=== PATIENT | female | born 1985 | race Two or more races ===

== ENCOUNTER 2019-09-27 18:29 | Observation (INO) | payer SELFPAY ==
[~2019-09-27] VITALS: Ht 167.6 cm; Wt 106.2 kg
[2019-09-27] MEDS ORDERED: ONDANSETRON PF 4 MG/2 ML VIAL. ONE (18:50)
[2019-09-27] MEDS ORDERED: IV NORMAL SALINE 1000ML BAG 1,000 ML IV ONE (19:30)
[2019-09-27] MEDS ORDERED: ONDANSETRON PF 4 MG/2 ML VIAL. IV ONE (19:30)
[2019-09-27 19:49] LABS: BASO # 0.1 x10^3/uL (0.0-0.2); BASO % 1 % (0-3); EOS # 0.1 x10^3/uL (0.0-0.7); EOS % 1 % (0-3); HEMATOCRIT 38.2 % (36.0-47.0); HEMOGLOBIN 12.8 g/dL (12.0-15.5); LYMPH % 25 % (24-48); MEAN CORPUSCULAR HEMOGLOBIN 28 pg (25-35); MEAN CORPUSCULAR HGB CONC 33 g/dL (31-37); MEAN CORPUSCULAR VOLUME 84 fL (79-100); MONO % 8 % (0-9); NEUT # 7.9 x10^3/uL (1.8-7.7); NEUT % 66 % (31-73); PLATELET COUNT 388 x10^3/uL (140-400); RED BLOOD COUNT 4.55 x10^6/uL (3.50-5.40); RED CELL DISTRIBUTION WIDTH 14.2 % (11.5-14.5)
[2019-09-27 19:51] LABS: CALCIUM 8.8 mg/dL (8.5-10.1); CREATININE 0.8 mg/dL (0.6-1.0); GFR 82.1; POTASSIUM 3.4 mmol/L (3.5-5.1)
[2019-09-27 19:56] LABS: ALBUMIN 3.7 g/dL (3.4-5.0); ALBUMIN/GLOBULIN RATIO 0.8 (1.0-1.7); TOTAL BILIRUBIN 0.3 mg/dL (0.2-1.0); TOTAL PROTEIN 8.1 g/dL (6.4-8.2)
[2019-09-27 20:26] LABS: BILIRUBIN,URINE NEGATIVE (NEG); CLARITY,URINE CLOUDY; COLOR,URINE YELLOW; NITRITE,URINE NEGATIVE (NEG); PH,URINE 8.5 (<5.0-8.0); PROTEIN,URINE NEGATIVE (NEG-TRACE)
[2019-09-27 20:35] LABS: SQUAMOUS EPITHELIAL CELL,UR MANY /LPF
[2019-09-27 20:36] LABS: BACTERIA,URINE MODERATE /HPF (0-FEW); RBC,URINE 0 /HPF (0-2); WBC,URINE 20-40 /HPF (0-4)
[2019-09-27] MEDS ORDERED: ONDANSETRON PF 4 MG/2 ML VIAL. IVP ONE (21:00)
[2019-09-27] MEDS ORDERED: MECLIZINE HCL 12.5 MG TABLET. PO ONE (21:00)
[2019-09-27] MEDS ORDERED: SCOPOLAMINE 1.5MG PATCH. TD ONE (21:00)
[2019-09-27] MEDS ORDERED: LORazepam 0.5 MG TABLET PO ONE (22:30)
[2019-09-27] MEDS ORDERED: PROCHLORPERAZINE 10 MG/2 ML VIAL. ONE (22:53)
--- NOTE | 2019-09-27 22:59 | RAD ---
Exam: CT head INDICATION: Intractable dizziness TECHNIQUE: Sequential axial images through the head were obtained without the administration of IV contrast. Comparisons: None FINDINGS: No focal parenchymal lesion or hemorrhage is identified. There is no midline shift or sulcal effacement. No acute vascular territory infarction is identified. West-white distinction is preserved. The ventricular system is within normal limits without compression hydrocephalus. The basal cisterns are well maintained. The visualized portions of the paranasal sinuses and mastoid air cells are well-pneumatized. No acute fractures. IMPRESSION: No acute intracranial abnormality. Exposure: One or more of the following in the visualized dose reduction techniques were utilized for this examination: 1. Automated exposure control 2. Adjustment of the MA and/or KV according to patient size Use of iterative of reconstructive technique Electronically signed by: David Ross MD (09/27/2019 10:55 PM) [id number]
[2019-09-27] MEDS ORDERED: PROCHLORPERAZINE 10 MG/2 ML VIAL. IV ONE (23:00)
--- NOTE | 2019-09-27 23:21 | PHYS DOC ---
Past Medical History Past Medical History: No Pertinent History Past Surgical History: Cholecystectomy Smoking Status: Never Smoker Alcohol Use: Occasionally General Adult EDM: Chief Complaint: DIZZY/LIGHT HEADED HPI: HPI: Patient is a 34 year old female, accompanied by her significant other, who presents to the emergency department with complaints of a sudden onset of lightheadedness, dizziness, and a sensation that the room is spinning. Patient reports that her vision seems like it is wiggling and is blurry. She denies any loss of vision. Patient denies any headache, numbness, tingling, weakness, ear pain, sore throat, body aches, cough, shortness of breath, chest pain, or palpitations. Patient denies any abdominal pain, dysuria, increased urinary frequency, hematuria, or back pain.. She reports 4 episodes of nausea and vomiting prior to arrival. She states that the nausea and vomiting increases if she moves her head. She reports her last menstrual cycle was on September 062019 she denies any concerns of . Patient denies any medical history. She reports her only surgical history is a cholecystectomy. Patient states she has noticed fatigue over the last week but denies any fever or known COVID-19 exposure. Patient also reports a itchy rash to her bilateral forearms that began 3 days ago, she states her child was diagnosed with poison pablo last week. Review of Systems: Review of Systems: Complete review of system is negative unless otherwise documented in the HPI. Heart Score: Risk Factors: Risk Factors: DM, Current or recent (<one month) smoker, HTN, HLP, family history of CAD, obesity. Risk Scores: Score 0 - 3: 2.5% MACE over next 6 weeks - Discharge Home Score 4 - 6: 20.3% MACE over next 6 weeks - Admit for Clinical Observation Score 7 - 10: 72.7% MACE over next 6 weeks - Early Invasive Strategies Current Medications: Current Medications Medications (Trade) Dose Ordered Sig/Karsten Start Time Stop Time Status Last Admin Dose Admin Lorazepam (Ativan) 1 mg 1X ONCE 09/27/19 22:30 09/27/19 22:31 DC 09/27/19 22:30 1 MG Meclizine HCl (Antivert) 25 mg 1X ONCE 09/27/19 21:00 09/27/19 21:01 DC 09/27/19 21:00 25 MG Ondansetron HCl (Zofran) 4 mg 1X ONCE 09/27/19 21:00 09/27/19 21:01 DC 09/27/19 21:00 4 MG Prochlorperazine Edisylate (Compazine) 10 mg 1X ONCE 09/27/19 23:00 09/27/19 23:01 DC 09/27/19 23:00 10 MG Scopolamine (Transderm-Scop) 1 patch 1X ONCE 09/27/19 21:00 09/27/19 21:01 DC 09/27/19 21:00 1 PATCH Sodium Chloride 1,000 ml @ 1,000 mls/hr 1X ONCE 09/27/19 19:30 09/27/19 20:29 DC 09/27/19 19:30 1,000 MLS/HR Allergies: Allergies: Allergies Coded Allergies Type Severity Reaction Last Updated Verified No Known Drug Allergies 09/27/19 No Physical Exam: PE: Constitutional: Well developed, well nourished, no acute distress, non-toxic appearance, obese, appears anxious. [] HENT: Normocephalic, atraumatic, bilateral external ears normal, nose normal. [] Eyes: PERRLA, EOMI, conjunctiva normal, no discharge; left lateral nystagmus. [] Neck: Normal range of motion, no stridor. [] Cardiovascular:Heart rate regular rhythm Lungs & Thorax: Bilateral breath sounds clear to auscultation, Respirations even and unlabored, no retractions, no respiratory distress [] Abdomen: Bowel sounds normal, soft, no tenderness Skin: Scattered red raised rash to bilateral forearms consistent with contact dermatitis, no warmth or drainage skin is otherwise pink warm and dry Back: No CVA tenderness. [] Extremities: No tenderness, no cyanosis, no clubbing, ROM intact, no edema. [] Neurologic: Alert and oriented X 3, normal motor function, normal sensory function, no focal deficits noted. [] Psychologic: Affect normal, judgement normal, mood normal. [] Current Patient Data: Labs: Laboratory Tests Test 09/27/19 18:55 09/27/19 20:10 09/27/19 20:22 White Blood Count 12.0 x10^3/uL (4.0-11.0) H Red Blood Count 4.55 x10^6/uL (3.50-5.40) Hemoglobin 12.8 g/dL (12.0-15.5) Hematocrit 38.2 % (36.0-47.0) Mean Corpuscular Volume 84 fL (79-100) Mean Corpuscular Hemoglobin 28 pg (25-35) Mean Corpuscular Hemoglobin Concent 33 g/dL (31-37) Red Cell Distribution Width 14.2 % (11.5-14.5) Platelet Count 388 x10^3/uL (140-400) Neutrophils (%) (Auto) 66 % (31-73) Lymphocytes (%) (Auto) 25 % (24-48) Monocytes (%) (Auto) 8 % (0-9) Eosinophils (%) (Auto) 1 % (0-3) Basophils (%) (Auto) 1 % (0-3) Neutrophils # (Auto) 7.9 x10^3/uL (1.8-7.7) H Lymphocytes # (Auto) 3.0 x10^3/uL (1.0-4.8) Monocytes # (Auto) 1.0 x10^3/uL (0.0-1.1) Eosinophils # (Auto) 0.1 x10^3/uL (0.0-0.7) Basophils # (Auto) 0.1 x10^3/uL (0.0-0.2) Sodium Level 140 mmol/L (136-145) Potassium Level 3.4 mmol/L (3.5-5.1) L Chloride Level 103 mmol/L (98-107) Carbon Dioxide Level 26 mmol/L (21-32) Anion Gap 11 (6-14) Blood Urea Nitrogen 11 mg/dL (7-20) Creatinine 0.8 mg/dL (0.6-1.0) Estimated GFR (Cockcroft-Gault) 82.1 BUN/Creatinine Ratio 14 (6-20) Glucose Level 102 mg/dL (70-99) H Calcium Level 8.8 mg/dL (8.5-10.1) Total Bilirubin 0.3 mg/dL (0.2-1.0) Aspartate Amino Transferase (AST) 22 U/L (15-37) Alanine Aminotransferase (ALT) 26 U/L (14-59) Alkaline Phosphatase 117 U/L (46-116) H Total Protein 8.1 g/dL (6.4-8.2) Albumin 3.7 g/dL (3.4-5.0) Albumin/Globulin Ratio 0.8 (1.0-1.7) L Lipase 115 U/L (73-393) Urine Collection Type Unknown Urine Color Yellow Urine Clarity Cloudy Urine pH 8.5 (<5.0-8.0) Urine Specific [place] 1.020 (1.000-1.030) Urine Protein Negative mg/dL (NEG-TRACE) Urine Glucose (UA) Negative mg/dL (NEG) Urine Ketones (Stick) Negative mg/dL (NEG) Urine Blood Negative (NEG) Urine Nitrite Negative (NEG) Urine Bilirubin Negative (NEG) Urine Urobilinogen Dipstick 1.0 mg/dL (0.2 mg/dL) Urine Leukocyte Esterase Small (NEG) Urine RBC 0 /HPF (0-2) Urine WBC 20-40 /HPF (0-4) Urine Squamous Epithelial Cells Many /LPF Urine Bacteria Moderate /HPF (0-FEW) Urine Mucus Marked /LPF POC Urine HCG, Qualitative Hcg negative (Negative) Laboratory Tests 09/27/19 18:55 Laboratory Tests 09/27/19 18:55 Vital Signs: Vital Signs Date Time Temp Pulse Resp B/P (MAP) Pulse Ox O2 Delivery O2 Flow Rate FiO2 09/27/19 21:14 66 18 99 09/27/19 18:30 98.3 155/98 (117) Room Air 98.3 EKG: EKG: [] Radiology/Procedures: Radiology/Procedures: PROCEDURE: CT HEAD WO CONTRAST Exam: CT head INDICATION: Intractable dizziness TECHNIQUE: Sequential axial images through the head were obtained without the administration of IV contrast. Comparisons: None FINDINGS: No focal parenchymal lesion or hemorrhage is identified. There is no midline shift or sulcal effacement. No acute vascular territory infarction is identified. West-white distinction is preserved. The ventricular system is within normal limits without compression hydrocephalus. The basal cisterns are well maintained. The visualized portions of the paranasal sinuses and mastoid air cells are well-pneumatized. No acute fractures. IMPRESSION: No acute intracranial abnormality.[] Course & Med Decision Making: Course & Med Decision Making Pertinent Labs and Imaging studies reviewed. (See chart for details) Patient is a 34-year-old female who presents to the emergency department with complaints of vertigo with intractable nausea and vomiting when she moves. Work-up included a CBC, CMP, lipase, UA, and CT head. CBC revealed a white blood cell count of 12.0 was otherwise unremarkable; CMP revealed a potassium of three-point 4, glucose 102, alk phos of 117 normal lipase and was otherwise unremarkable; patient is urinary we will do 20-40 white blood cell count with moderate bacteria and many squamous cells hCG was negative. Patient was given 4 mg of Zofran with no resolution of her nausea, she was then given a liter of normal saline for more milligrams of Zofran, 25 mg of p.o. meclizine, and a scopolamine patch was placed behind her ear. Patient reported decreased dizziness as long as she did not move after these medications. However, when the patient got up to go to the bathroom she became severely nauseated again and began vomiting. The patient reported return of dizziness with position change. She was given 10 mg of IV the Compazine and a milligram of Ativan. Again the patient reports no dizziness, nausea, or vomiting unless she moves her head. CT of her head was ordered and revealed no acute findings. The patient was given a gram of Rocephin IV for treatment of her urinary tract infection. Will admit the patient to the hospitalist for vertigo, intractable nausea and vomiting, and a UTI. Dr. Honeycutt will inform the oncoming hospitalist of the admission. [] Krysta Disclaimer: Krysta Disclaimer: This electronic medical record was generated, in whole or in part, using a voice recognition dictation system. Departure Departure Impression: Primary Impression: Vertigo Additional Impression: Intractable nausea and vomiting Disposition: ADMITTED INPATIENT Admitting Physician: CAROL Pantoja) Condition: STABLE Referrals: NO PCP (PCP) Justicifation of Admission Dx: Justifications for Admission: Justification of Admission Dx: Yes Comments: Vertigo, intractable nausea vomiting, UTI patient admitted for observation. ALEXANDRA GARCIA [employer] Sep 27, 2019 23:21
[2019-09-27] MEDS ORDERED: cefTRIAXone IV Push 1 GM VIAL. IVP ONE (23:55)
[2019-09-28] MEDS: IV NORMAL SALINE 1000ML BAG 1,000 ML IV SCH ×2 (00:10→10:42)
[2019-09-28 00:45] VITALS: BP 128/74
[2019-09-28 03:00] VITALS: BP 126/70
--- NOTE | 2019-09-28 04:01 | NUR ---
0045 patient admitted to room 402 , patient assessment done, fall precaution in placed., POC discussed with patient .
[2019-09-28 07:00] VITALS: BP 111/64
--- NOTE | 2019-09-28 08:47 | PDOC1 ---
History and Physical Date of Admission Date of Admission DATE: 09/28/19 TIME: 08:32 Identification/Chief Complaint Chief Complaint Intractable nausea and vomiting Source Source: Patient History of Present Illness History of Present Illness Ms Chawla is a 34 yo F w/ PMHx obesity who p/w intractable vomiting with dizziness. She notes on 09/27/2019 after eating shrimp low main with her and 2 children 11 and 6 she started feeling dizzy 5 minutes after finishing dinner and while still sitting at the table and experienced intense vomiting. She reports 4 episodes of nausea and vomiting prior to arrival. She states that the nausea and vomiting increases if she moves her head. Noting dizziness, and a sensation that the room is spinning, vertigo when moving her head to the right. Initially described "wiggling and blurry" vision and noted with right cycloplegia by ED nursing staff. She denies any loss of vision or impaired vision. Patient denies any headache, numbness, tingling, weakness, ear pain, sore throat, body aches, cough, shortness of breath, chest pain, or palpitations. Patient denies any abdominal pain, dysuria, increased urinary frequency, hematuria, or back pain. She reports her last menstrual cycle was on September [id number] she denies any concerns of . Only surgical history is a cholecystectomy. Patient states she has noticed fatigue over the last week but denies any fever, but she does have a known COVID-19 exposure to a cousin at a barbecue 6 days ago. On further ROS notes a pruritic rash to her bilateral forearms that began 3 days ago, she states her child was diagnosed with a pruritic facial rash 5 days ago, that was initially treated as poison pablo with topical and oral steroids, but when it became significantly worse they went to [facility] and her daughter was diagnosed with viral rash, herpetic and started on acyclovir with quick resolution. WBC 12, K 3.4, no other abnormalities. CT head was negative for abnormality. UA - 20-40 white blood cell count with moderate bacteria and many squamous cells hCG was negative. Patient was given 4 mg of Zofran with no resolution of her nausea, she was then given a liter of normal saline 4mg Zofran, 25 mg of p.o. meclizine, and a scopolamine patch was placed behind her ear. Patient reported decreased dizziness as long as she did not move after these medications. However, when the patient got up to go to the bathroom she became severely nauseated again and began vomiting in ED. The patient reported return of dizziness with position change. She was given 10 mg of IV the Compazine and a milligram of Ativan. Again the patient reports no dizziness, nausea, or vomiting unless she moves her head. CT of her head was ordered and revealed no acute findings. The patient was given a gram of Rocephin IV for by ED. Admitted for vertigo, intractable nausea and vomiting Past Medical History Cardiovascular: No pertinent hx Past Surgical History Past Surgical History: Cholecystectomy Family History Family History: High Cholestrol, Hypertension Social History Smoke: No ALCOHOL: rare Drugs: None Current Problem List Problem List Problems Medical Problems: (1) Intractable nausea and vomiting Status: Acute (2) Vertigo Status: Acute Current Medications Current Medications Current Medications Ondansetron HCl (Zofran) 4 mg STK-MED ONCE .ROUTE ; Start 09/27/19 at 18:50; Stop 09/27/19 at 18:50; Status DC Sodium Chloride 1,000 ml @ 1,000 mls/hr 1X ONCE IV Last administered on 09/27/19at 19:30; Start 09/27/19 at 19:30; Stop 09/27/19 at 20:29; Status DC Ondansetron HCl (Zofran) 4 mg 1X ONCE IV Last administered on 09/27/19at 19:30; Start 09/27/19 at 19:30; Stop 09/27/19 at 19:31; Status DC Meclizine HCl (Antivert) 25 mg 1X ONCE PO Last administered on 09/27/19at 21:00; Start 09/27/19 at 21:00; Stop 09/27/19 at 21:01; Status DC Ondansetron HCl (Zofran) 4 mg 1X ONCE IVP Last administered on 09/27/19at 21:00; Start 09/27/19 at 21:00; Stop 09/27/19 at 21:01; Status DC Scopolamine (Transderm-Scop) 1 patch 1X ONCE TD Last administered on 09/27/19at 21:00; Start 09/27/19 at 21:00; Stop 09/27/19 at 21:01; Status DC Lorazepam (Ativan) 1 mg 1X ONCE PO Last administered on 09/27/19at 22:30; Start 09/27/19 at 22:30; Stop 09/27/19 at 22:31; Status DC Prochlorperazine Edisylate (Compazine) 10 mg STK-MED ONCE .ROUTE ; Start 09/27/19 at 22:53; Stop 09/27/19 at 22:54; Status DC Prochlorperazine Edisylate (Compazine) 10 mg 1X ONCE IV Last administered on 09/27/19at 23:00; Start 09/27/19 at 23:00; Stop 09/27/19 at 23:01; Status DC Sodium Chloride 1,000 ml @ 100 mls/hr Q10H IV Last administered on 09/28/19at 00:10; Start 09/27/19 at 23:30; Stop 09/28/19 at 23:29 Ceftriaxone Sodium (Rocephin) 1 gm 1X ONCE IVP Last administered on 09/28/19at 00:09; Start 09/27/19 at 23:55; Stop 09/27/19 at 23:56; Status DC Allergies Allergies: Coded Allergies: No Known Drug Allergies (Unverified , 09/27/19) ROS General: No: Chills, Night Sweats, Fatigue, Malaise, Appetite, Other PSYCHOLOGICAL ROS: No: Anxiety, Behavioral Disorder, Concentration difficultie, Decreased libido, Depression, Disorientation, Hallucinations, Hostility, Irritablity, Memory difficulties, Mood Swings, Obsessive thoughts, Physical abuse, Sexual abuse, Sleep disturbances, Suicidal ideation, Other Eyes: No Blurry vision, No Decreased vision, No Double vision, No Dry eyes, No Excessive tearing, No Eye Pain, No Itchy Eyes, No Loss of vision, No Photophobia, No Scotomata, No Uses contacts, No Uses glasses, No Other HEENT: YES: Heacaches; No: Visual Changes, Hearing change, Nasal congestion, Nasal discharge, Oral lesions, Sinus pain, Sore Throat, Epistaxis, Sneezing, Snoring, Tinnitus, Vertigo, Vocal changes, Other ALLERGY AND IMMUNOLOGY: YES: Hives; No: Insect Bite Sensitivity, Itchy/Watery Eyes, Nasal Congestion, Post Nasal Drip, Seasonal Allergies, Other Hematological and Lymphatic: No: Bleeding Problems, Blood Clots, Blood Transfusions, Brusing, Night Sweats, Pallor, Swollen Lymph Nodes, Other ENDOCRINE: No: Breast Changes, Galactorrhea, Hair Pattern Changes, Hot Flashes, Malaise/lethargy, Mood Swings, Palpitations, Polydipsia/polyuria, Skin Changes, Temperature Intolerance, Unexpected Weight Changes, Other Breast: No New/Changing Breast Lumps, No Nipple changes, No Nipple discharge, No Other Respiratory: No: Cough, Hemoptysis, Orthopnea, Pleuritic Pain, Shortness of breath, SOB with excertion, Sputum Changes, Stridor, Tachypnea, Wheezing, Other Cardiovascular: No Chest Pain, No Palpitations, No Orthopnea, No Paroxysmal Noc. Dyspnea, No Edema, No Lt Headedness, No Other Gastrointestinal: Yes Nausea, Yes Vomiting; No Abdominal Pain, No Diarrhea, No Constipation, No Melena, No Hematochezia, No Other Genitourinary: No Dysuria, No Frequency, No Incontinence, No Hematuria, No Retention, No Discharge, No Urgency, No Pain, No Flank Pain, No Other, No , No , No , No , No , No , No Musculoskeletal: Yes Gait Disturbance; No Joint Pain, No Joint Stiffness, No Joint Swelling, No Muscle Pain, No Muscular Weakness, No Pain In:, No Swelling In:, No Other Neurological: Yes Dizziness, Yes Gait Disturbance; No Behavorial Changes, No Bowel/Bladder ControlChng, No Confusion, No Headaches, No Impaired Coord/balance, No Memory Loss, No Numbness/Tingling, No Seizures, No Speech Problems, No Tremors, No Visual Changes, No Weakness, No Other Skin: Yes Pruritus, Yes Rash, Yes Skin Lesion Changes; No Dry Skin, No Eczema, No Hair Changes, No Lumps, No Mole Changes, No Mottling, No Nail Changes, No Other, No Acne Physical Exam General: Alert, Oriented X3, Cooperative, No acute distress HEENT: Atraumatic, PERRLA, EOMI, Mucous membr. moist/pink, Other (Right ear with red lesions) Lungs: Clear to auscultation, Normal air movement Heart: S1S2, RRR, no thrills, no rubs Abdomen: Normal bowel sounds, Soft, No tenderness, No hepatosplenomegaly, No masses Rectal Exam: not examined Extremities: No clubbing, No cyanosis, No edema, Normal pulses, No tenderness/swelling Skin: Other (red raised macular rash on bilateral arms and neck, chest) Neuro: Normal gait, Normal speech, Strength at 5/5 X4 ext, Normal tone, Sen sation intact, Cranial nerves 3-12 NL, Reflexes 2+, Other (Right cycloplegia on righthead movement) Psych/Mental Status: Mental status NL, Mood NL Vitals Vitals Vital Signs Date Time Temp Pulse Resp B/P (MAP) Pulse Ox O2 Delivery O2 Flow Rate FiO2 09/28/19 07:00 98.3 81 16 111/64 (80) 100 Room Air 98.3 Labs Labs Laboratory Tests Test 09/27/19 18:55 09/27/19 20:10 09/27/19 20:22 White Blood Count 12.0 x10^3/uL (4.0-11.0) Red Blood Count 4.55 x10^6/uL (3.50-5.40) Hemoglobin 12.8 g/dL (12.0-15.5) Hematocrit 38.2 % (36.0-47.0) Mean Corpuscular Volume 84 fL (79-100) Mean Corpuscular Hemoglobin 28 pg (25-35) Mean Corpuscular Hemoglobin Concent 33 g/dL (31-37) Red Cell Distribution Width 14.2 % (11.5-14.5) Platelet Count 388 x10^3/uL (140-400) Neutrophils (%) (Auto) 66 % (31-73) Lymphocytes (%) (Auto) 25 % (24-48) Monocytes (%) (Auto) 8 % (0-9) Eosinophils (%) (Auto) 1 % (0-3) Basophils (%) (Auto) 1 % (0-3) Neutrophils # (Auto) 7.9 x10^3/uL (1.8-7.7) Lymphocytes # (Auto) 3.0 x10^3/uL (1.0-4.8) Monocytes # (Auto) 1.0 x10^3/uL (0.0-1.1) Eosinophils # (Auto) 0.1 x10^3/uL (0.0-0.7) Basophils # (Auto) 0.1 x10^3/uL (0.0-0.2) Sodium Level 140 mmol/L (136-145) Potassium Level 3.4 mmol/L (3.5-5.1) Chloride Level 103 mmol/L (98-107) Carbon Dioxide Level 26 mmol/L (21-32) Anion Gap 11 (6-14) Blood Urea Nitrogen 11 mg/dL (7-20) Creatinine 0.8 mg/dL (0.6-1.0) Estimated GFR (Cockcroft-Gault) 82.1 BUN/Creatinine Ratio 14 (6-20) Glucose Level 102 mg/dL (70-99) Calcium Level 8.8 mg/dL (8.5-10.1) Total Bilirubin 0.3 mg/dL (0.2-1.0) Aspartate Amino Transf (AST/SGOT) 22 U/L (15-37) Alanine Aminotransferase (ALT/SGPT) 26 U/L (14-59) Alkaline Phosphatase 117 U/L (46-116) Total Protein 8.1 g/dL (6.4-8.2) Albumin 3.7 g/dL (3.4-5.0) Albumin/Globulin Ratio 0.8 (1.0-1.7) Lipase 115 U/L (73-393) Urine Collection Type Unknown Urine Color Yellow Urine Clarity Cloudy Urine pH 8.5 (<5.0-8.0) Urine Specific [place] 1.020 (1.000-1.030) Urine Protein Negative mg/dL (NEG-TRACE) Urine Glucose (UA) Negative mg/dL (NEG) Urine Ketones (Stick) Negative mg/dL (NEG) Urine Blood Negative (NEG) Urine Nitrite Negative (NEG) Urine Bilirubin Negative (NEG) Urine Urobilinogen Dipstick 1.0 mg/dL (0.2 mg/dL) Urine Leukocyte Esterase Small (NEG) Urine RBC 0 /HPF (0-2) Urine WBC 20-40 /HPF (0-4) Urine Squamous Epithelial Cells Many /LPF Urine Bacteria Moderate /HPF (0-FEW) Urine Mucus Marked /LPF Bedside Urine HCG, Qualitative Hcg negative (Negative) Laboratory Tests Test 09/27/19 18:55 09/27/19 20:10 09/27/19 20:22 White Blood Count 12.0 x10^3/uL (4.0-11.0) Red Blood Count 4.55 x10^6/uL (3.50-5.40) Hemoglobin 12.8 g/dL (12.0-15.5) Hematocrit 38.2 % (36.0-47.0) Mean Corpuscular Volume 84 fL (79-100) Mean Corpuscular Hemoglobin 28 pg (25-35) Mean Corpuscular Hemoglobin Concent 33 g/dL (31-37) Red Cell Distribution Width 14.2 % (11.5-14.5) Platelet Count 388 x10^3/uL (140-400) Neutrophils (%) (Auto) 66 % (31-73) Lymphocytes (%) (Auto) 25 % (24-48) Monocytes (%) (Auto) 8 % (0-9) Eosinophils (%) (Auto) 1 % (0-3) Basophils (%) (Auto) 1 % (0-3) Neutrophils # (Auto) 7.9 x10^3/uL (1.8-7.7) Lymphocytes # (Auto) 3.0 x10^3/uL (1.0-4.8) Monocytes # (Auto) 1.0 x10^3/uL (0.0-1.1) Eosinophils # (Auto) 0.1 x10^3/uL (0.0-0.7) Basophils # (Auto) 0.1 x10^3/uL (0.0-0.2) Sodium Level 140 mmol/L (136-145) Potassium Level 3.4 mmol/L (3.5-5.1) Chloride Level 103 mmol/L (98-107) Carbon Dioxide Level 26 mmol/L (21-32) Anion Gap 11 (6-14) Blood Urea Nitrogen 11 mg/dL (7-20) Creatinine 0.8 mg/dL (0.6-1.0) Estimated GFR (Cockcroft-Gault) 82.1 BUN/Creatinine Ratio 14 (6-20) Glucose Level 102 mg/dL (70-99) Calcium Level 8.8 mg/dL (8.5-10.1) Total Bilirubin 0.3 mg/dL (0.2-1.0) Aspartate Amino Transf (AST/SGOT) 22 U/L (15-37) Alanine Aminotransferase (ALT/SGPT) 26 U/L (14-59) Alkaline Phosphatase 117 U/L (46-116) Total Protein 8.1 g/dL (6.4-8.2) Albumin 3.7 g/dL (3.4-5.0) Albumin/Globulin Ratio 0.8 (1.0-1.7) Lipase 115 U/L (73-393) Urine Collection Type Unknown Urine Color Yellow Urine Clarity Cloudy Urine pH 8.5 (<5.0-8.0) Urine Specific [place] 1.020 (1.000-1.030) Urine Protein Negative mg/dL (NEG-TRACE) Urine Glucose (UA) Negative mg/dL (NEG) Urine Ketones (Stick) Negative mg/dL (NEG) Urine Blood Negative (NEG) Urine Nitrite Negative (NEG) Urine Bilirubin Negative (NEG) Urine Urobilinogen Dipstick 1.0 mg/dL (0.2 mg/dL) Urine Leukocyte Esterase Small (NEG) Urine RBC 0 /HPF (0-2) Urine WBC 20-40 /HPF (0-4) Urine Squamous Epithelial Cells Many /LPF Urine Bacteria Moderate /HPF (0-FEW) Urine Mucus Marked /LPF Bedside Urine HCG, Qualitative Hcg negative (Negative) Images Images CT HEAD: No focal parenchymal lesion or hemorrhage is identified. There is no midline shift or sulcal effacement. No acute vascular territory infarction is identified. West-white distinction is preserved. The ventricular system is within normal limits without compression hydrocephalus. The basal cisterns are well maintained. The visualized portions of the paranasal sinuses and mastoid air cells are well- pneumatized. No acute fractures. IMPRESSION: No acute intracranial abnormality. VTE Prophylaxis Ordered VTE Prophylaxis Devices: No VTE Pharmacological Prophylaxi: No Assessment/Plan Assessment/Plan A/P: vertigo - will have PT see to test for BPPV, which I cannot fully elicit, but on right side turning worse. right otitis externa could be viral, will treat for viral neuritis/labyrinthitis with acyclovir/valtrex Intractable nausea and vomiting - likely vertigo related, food poisoning less likely given her family ate the same. IV antiemetics. Will attempt PO as soon as able Leukocytosis - likely related to vomiting Abnormal UA - denies dysuria, given rocephin. Her squamous cells show this l ikely to be a contaminated sample, will stop antibiotics Scattered raised macular pruritic rash - with child recently treated for viral herpetic infection, will treat with valacyclovir PO, if unable to take PO, will initiate IV acyclovir Obesity - counseled on weight loss Hypokalemia - likely 2/2 vomiting. will check mag, replace FEN - ADAT PPX - SCDs FULL CODE Dispo - observation for likely viral neuritis with associated rash and vomiting. If she can take PO well, can discharge on valtrex Justicifation of Admission Dx: Justifications for Admission: Justification of Admission Dx: Yes EVERTON BOYLE MD Sep 28, 2019 08:47
[2019-09-28 11:00] VITALS: BP 109/60
[2019-09-28] MEDS ORDERED: POTASSIUM CHLORIDE 20 MEQ TABLET.ER. PO ONE (13:00)
[2019-09-28] MEDS ORDERED: MAGNESIUM SULFATE 1GM 100 ML IV ONE (13:00)
[2019-09-28] MEDS ORDERED: cefTRIAXone IV Push 1 GM VIAL. IVP SCH (14:00)
[2019-09-28 15:00] VITALS: BP 109/64
[2019-09-28] MEDS ORDERED: VALA10005 PO (15:21)
[2019-09-28] MEDS ORDERED: valACYclovir 500 MG TABLET. PO SCH (15:30)
[2019-09-28] MEDS ORDERED: ONDANSETRON ODT 4 MG TAB.RAPDIS. PO PRN (16:30)
[2019-09-28] MEDS ORDERED: ONDANSETRON PF 4 MG/2 ML VIAL. IVP PRN (16:30)
--- NOTE | 2019-09-28 17:40 | PDOC3 ---
Discharge Summary Visit Information Date of Admission: Sep 27, 2019 Date of Discharge: Sep 28, 2019 Admitting Diagnosis: Intractable nausea and vomiting Final Diagnosis Problems Medical Problems: (1) Intractable nausea and vomiting Status: Acute (2) Vertigo Status: Acute Brief Hospital Course Allergies Allergies Coded Allergies Type Severity Reaction Last Updated Verified No Known Drug Allergies 09/27/19 No Vital Signs Vital Signs Date Time Temp Pulse Resp B/P (MAP) Pulse Ox O2 Delivery O2 Flow Rate FiO2 09/28/19 15:00 98.4 58 18 109/64 (79) 97 Room Air 98.4 Lab Results Laboratory Tests Test 09/27/19 18:55 09/27/19 20:10 09/27/19 20:22 09/28/19 09:18 White Blood Count 12.0 x10^3/uL (4.0-11.0) Red Blood Count 4.55 x10^6/uL (3.50-5.40) Hemoglobin 12.8 g/dL (12.0-15.5) Hematocrit 38.2 % (36.0-47.0) Mean Corpuscular Volume 84 fL (79-100) Mean Corpuscular Hemoglobin 28 pg (25-35) Mean Corpuscular Hemoglobin Concent 33 g/dL (31-37) Red Cell Distribution Width 14.2 % (11.5-14.5) Platelet Count 388 x10^3/uL (140-400) Neutrophils (%) (Auto) 66 % (31-73) Lymphocytes (%) (Auto) 25 % (24-48) Monocytes (%) (Auto) 8 % (0-9) Eosinophils (%) (Auto) 1 % (0-3) Basophils (%) (Auto) 1 % (0-3) Neutrophils # (Auto) 7.9 x10^3/uL (1.8-7.7) Lymphocytes # (Auto) 3.0 x10^3/uL (1.0-4.8) Monocytes # (Auto) 1.0 x10^3/uL (0.0-1.1) Eosinophils # (Auto) 0.1 x10^3/uL (0.0-0.7) Basophils # (Auto) 0.1 x10^3/uL (0.0-0.2) Sodium Level 140 mmol/L (136-145) Potassium Level 3.4 mmol/L (3.5-5.1) Chloride Level 103 mmol/L (98-107) Carbon Dioxide Level 26 mmol/L (21-32) Anion Gap 11 (6-14) Blood Urea Nitrogen 11 mg/dL (7-20) Creatinine 0.8 mg/dL (0.6-1.0) Estimated GFR (Cockcroft-Gault) 82.1 BUN/Creatinine Ratio 14 (6-20) Glucose Level 102 mg/dL (70-99) Calcium Level 8.8 mg/dL (8.5-10.1) Total Bilirubin 0.3 mg/dL (0.2-1.0) Aspartate Amino Transf (AST/SGOT) 22 U/L (15-37) Alanine Aminotransferase (ALT/SGPT) 26 U/L (14-59) Alkaline Phosphatase 117 U/L (46-116) Total Protein 8.1 g/dL (6.4-8.2) Albumin 3.7 g/dL (3.4-5.0) Albumin/Globulin Ratio 0.8 (1.0-1.7) Lipase 115 U/L (73-393) Urine Collection Type Unknown Urine Color Yellow Urine Clarity Cloudy Urine pH 8.5 (<5.0-8.0) Urine Specific [place] 1.020 (1.000-1.030) Urine Protein Negative mg/dL (NEG-TRACE) Urine Glucose (UA) Negative mg/dL (NEG) Urine Ketones (Stick) Negative mg/dL (NEG) Urine Blood Negative (NEG) Urine Nitrite Negative (NEG) Urine Bilirubin Negative (NEG) Urine Urobilinogen Dipstick 1.0 mg/dL (0.2 mg/dL) Urine Leukocyte Esterase Small (NEG) Urine RBC 0 /HPF (0-2) Urine WBC 20-40 /HPF (0-4) Urine Squamous Epithelial Cells Many /LPF Urine Bacteria Moderate /HPF (0-FEW) Urine Mucus Marked /LPF Bedside Urine HCG, Qualitative Hcg negative (Negative) Magnesium Level 1.9 mg/dL (1.8-2.4) Laboratory Tests Test 09/27/19 18:55 09/27/19 20:10 09/27/19 20:22 09/28/19 09:18 White Blood Count 12.0 x10^3/uL (4.0-11.0) Red Blood Count 4.55 x10^6/uL (3.50-5.40) Hemoglobin 12.8 g/dL (12.0-15.5) Hematocrit 38.2 % (36.0-47.0) Mean Corpuscular Volume 84 fL (79-100) Mean Corpuscular Hemoglobin 28 pg (25-35) Mean Corpuscular Hemoglobin Concent 33 g/dL (31-37) Red Cell Distribution Width 14.2 % (11.5-14.5) Platelet Count 388 x10^3/uL (140-400) Neutrophils (%) (Auto) 66 % (31-73) Lymphocytes (%) (Auto) 25 % (24-48) Monocytes (%) (Auto) 8 % (0-9) Eosinophils (%) (Auto) 1 % (0-3) Basophils (%) (Auto) 1 % (0-3) Neutrophils # (Auto) 7.9 x10^3/uL (1.8-7.7) Lymphocytes # (Auto) 3.0 x10^3/uL (1.0-4.8) Monocytes # (Auto) 1.0 x10^3/uL (0.0-1.1) Eosinophils # (Auto) 0.1 x10^3/uL (0.0-0.7) Basophils # (Auto) 0.1 x10^3/uL (0.0-0.2) Sodium Level 140 mmol/L (136-145) Potassium Level 3.4 mmol/L (3.5-5.1) Chloride Level 103 mmol/L (98-107) Carbon Dioxide Level 26 mmol/L (21-32) Anion Gap 11 (6-14) Blood Urea Nitrogen 11 mg/dL (7-20) Creatinine 0.8 mg/dL (0.6-1.0) Estimated GFR (Cockcroft-Gault) 82.1 BUN/Creatinine Ratio 14 (6-20) Glucose Level 102 mg/dL (70-99) Calcium Level 8.8 mg/dL (8.5-10.1) Total Bilirubin 0.3 mg/dL (0.2-1.0) Aspartate Amino Transf (AST/SGOT) 22 U/L (15-37) Alanine Aminotransferase (ALT/SGPT) 26 U/L (14-59) Alkaline Phosphatase 117 U/L (46-116) Total Protein 8.1 g/dL (6.4-8.2) Albumin 3.7 g/dL (3.4-5.0) Albumin/Globulin Ratio 0.8 (1.0-1.7) Lipase 115 U/L (73-393) Urine Collection Type Unknown Urine Color Yellow Urine Clarity Cloudy Urine pH 8.5 (<5.0-8.0) Urine Specific [place] 1.020 (1.000-1.030) Urine Protein Negative mg/dL (NEG-TRACE) Urine Glucose (UA) Negative mg/dL (NEG) Urine Ketones (Stick) Negative mg/dL (NEG) Urine Blood Negative (NEG) Urine Nitrite Negative (NEG) Urine Bilirubin Negative (NEG) Urine Urobilinogen Dipstick 1.0 mg/dL (0.2 mg/dL) Urine Leukocyte Esterase Small (NEG) Urine RBC 0 /HPF (0-2) Urine WBC 20-40 /HPF (0-4) Urine Squamous Epithelial Cells Many /LPF Urine Bacteria Moderate /HPF (0-FEW) Urine Mucus Marked /LPF Bedside Urine HCG, Qualitative Hcg negative (Negative) Magnesium Level 1.9 mg/dL (1.8-2.4) Brief Hospital Course Ms Chawla is a 34 yo F w/ PMHx obesity who p/w intractable vomiting with dizziness. She notes on 09/27/2019 after eating shrimp low main with her and 2 children 11 and 6 she started feeling dizzy 5 minutes after finishing dinner and while still sitting at the table and experienced intense vomiting. She reports 4 episodes of nausea and vomiting prior to arrival. She states that the nausea and vomiting increases if she moves her head. Noting dizziness, and a sensation that the room is spinning, vertigo when moving her head to the right. Initially described "wiggling and blurry" vision and noted with right cycloplegia by ED nu rsing staff. She denies any loss of vision or impaired vision. Patient denies any headache, numbness, tingling, weakness, ear pain, sore throat, body aches, cough, shortness of breath, chest pain, or palpitations. Patient denies any abdominal pain, dysuria, increased urinary frequency, hematuria, or back pain. She reports her last menstrual cycle was on September [id number] she denies any concerns of . Only surgical history is a cholecystectomy. Patient states she has noticed fatigue over the last week but denies any fever, but she does have a known COVID-19 exposure to a cousin at a barbecue 6 days ago. On further ROS notes a pruritic rash to her bilateral forearms that began 3 days ago, she states her child was diagnosed with a pruritic facial rash 5 days ago, that was initially treated as poison pablo with topical and oral steroids, but when it became significantly worse they went to [facility] and her daughter was diagnosed with viral rash, herpetic and started on acyclovir with quick resolution. WBC 12, K 3.4, no other abnormalities. CT head was negative for abnormality. UA - 20-40 white blood cell count with moderate bacteria and many squamous cells hCG was negative. Patient was given 4 mg of Zofran with no resolution of her nausea, she was then given a liter of normal saline 4mg Zofran, 25 mg of p.o. meclizine, and a scopolamine patch was placed behind her ear. Patient reported decreased dizziness as long as she did not move after these medications. However, when the patient got up to go to the bathroom she became severely nauseated again and began vomiting in ED. The patient reported return of dizziness with position change. She was given 10 mg of IV the Compazine and a milligram of Ativan. Again the patient reports no dizziness, nausea, or vomiting unless she moves her head. CT of her head was ordered and revealed no acute findings. The patient was given a gram of Rocephin IV for by ED. Admitted for vertigo, intractable nausea and vomiting She improved with IV antiemetics and was able to take PO.valtrex with improvement in her rash and her vertigo. It also improved with scopolamine and maneuvering to the right worsened her symptoms while the peyton maneuver did not. Problem List: vertigo - PT tested for BPPV, which cannot fully elicit, but on right side turning worse. right otitis externa could be viral, will treat for viral neuritis/labyrinthitis with acyclovir/valtrex Intractable nausea and vomiting - likely vertigo related, food poisoning less likely given her family ate the same. IV antiemetics improved Leukocytosis - likely related to vomiting Abnormal UA - denies dysuria, given rocephin. Her squamous cells show this likely to be a contaminated sample, will stop antibiotics Scattered raised macular pruritic rash - with child recently treated for viral herpetic infection, will treat with valacyclovir PO Obesity - counseled on weight loss Hypokalemia - likely 2/2 vomiting. replaced checked mag, replaced Greater than 30 minutes spent on d/c Discharge Information Condition at Discharge: Improved Follow Up: Weeks (2) Disposition/Orders: D/C to Home Scheduled Valacyclovir Hcl (Valtrex) 1,000 Mg Tablet, 1 TAB PO TID for Viral neuritis, #21 Prescribed by: EVERTON BOYLE MD on 09/28/19 1521 Justicifation of Admission Dx: Justifications for Admission: Justification of Admission Dx: Yes EVERTON BOYLE MD Sep 28, 2019 17:40
--- NOTE | 2019-09-28 19:04 | NUR ---
Discharge teaching completed. Patient states her N/V have resolved, but that her dizziness comes and goes intermittently. She will follow up with her primary doctor and will quaranteen herself two weeks from her last known exposure to her relative with known Covid-19. She [address] that Dr Mendoza instructed her to go [facility]. She was discharge to home with her spouse; escorted out by staff via w/c. IV site discontinued without difficulty.
== END 2019-09-28 19:10 | disposition home or self-care (01) ==
LOC: ER 18:29 → 4 NORTH 09-28 00:10
PROVIDERS: ADMIT Internal Medicine; ATTEND Internal Medicine
DX: R42 Dizziness and giddiness (principal); R11.2 Nausea with vomiting, unspecified; E66.9 Obesity, unspecified; E87.6 Hypokalemia; M79.2 Neuralgia and neuritis, unspecified; N39.0 Urinary tract infection, site not specified; Z20.828 Contact with and (suspected) exposure to other viral communicable diseases
CPT/HCPCS: 36415; 70450; 80053; 81001; 81025; 83690; 83735; 85025; 87086; 96361; 96365; 96375; 96376; 97161; 99284; G0378; J0696; J0780; J2405; J3475; J7030; U0003; G0379; J8597

== ENCOUNTER 2020-01-09 13:38 | Emergency (ER) | payer SELFPAY ==
[~2020-01-09] VITALS: Ht 160 cm; Wt 97.7 kg
[~2020-01-09 13:38] MED LIST: VALA10005 PO
[2020-01-09 14:33] VITALS: BP 125/65
[2020-01-09] MEDS ORDERED: CEPH-264 PO (15:19)
--- NOTE | 2020-01-09 15:20 | PHYS DOC ---
Past Medical History Past Medical History: No Pertinent History Past Surgical History: Cholecystectomy Smoking Status: Never Smoker Alcohol Use: Occasionally General Adult EDM: Chief Complaint: INSECT BITE HPI: HPI: Patient is a 34 year old female who presents emergency department with complaints of redness, itching, multiple insect bites of bilateral upper extremities and left lower extremity. Patient reports that she noticed the symptoms yesterday but the symptoms have increased today. She denies any fever, numbness, tingling, or weakness of the affected extremities. She denies any drainage or bleeding from the sites. Patient denies any shortness of breath, wheezing, chest pain, nausea, vomiting, diarrhea, or abdominal pain. She currently rates her discomfort a 6 out of 10 on the pain scale, she denies any alleviating or exacerbating factors. Review of Systems: Review of Systems: Complete ROS is negative unless otherwise stated in the HPI. Heart Score: Risk Factors: Risk Factors: DM, Current or recent (<one month) smoker, HTN, HLP, family history of CAD, obesity. Risk Scores: Score 0 - 3: 2.5% MACE over next 6 weeks - Discharge Home Score 4 - 6: 20.3% MACE over next 6 weeks - Admit for Clinical Observation Score 7 - 10: 72.7% MACE over next 6 weeks - Early Invasive Strategies Allergies: Allergies: Allergies Coded Allergies Type Severity Reaction Last Updated Verified No Known Drug Allergies 09/27/19 No Physical Exam: PE: Constitutional: Well developed, well nourished, no acute distress, non-toxic ishmael earance. [] HENT: Normocephalic, atraumatic, bilateral external ears normal, nose normal. [] Eyes: PERRLA, EOMI, conjunctiva normal, no discharge. [] Neck: Normal range of motion, no stridor. [] Cardiovascular:Heart rate regular rhythm Lungs & Thorax: Respirations even and unlabored, no retractions, no respiratory distress Skin: Warm, dry; 10 cm diameter area of erythema, warmth, and 1+ edema noted to anterior right forearm with central punctum, 3 cm diameter area of erythema, warmth, and localized edema to lateral right forearm, 2 cm diameter area of erythema, warmth, and localized edema with central punctum noted to left lateral forearm, and 2 cm area of erythema with centralized punctum with honey colored crusting noted to the lower left extremity. Each of the sites is concerning for allergic reaction and localized infection to insect bite. Extremities: No cyanosis, ROM intact, no edema. [] Neurologic: Alert and oriented X 3, no focal deficits noted. [] Psychologic: Affect normal, judgement normal, mood normal. [] Current Patient Data: Vital Signs: Vital Signs Date Time Temp Pulse Resp B/P (MAP) Pulse Ox O2 Delivery O2 Flow Rate FiO2 01/09/20 14:33 98.8 81 18 125/65 (85) 99 Room Air 98.8 EKG: EKG: [] Radiology/Procedures: Radiology/Procedures: [] Course & Med Decision Making: Course & Med Decision Making Pertinent Labs and Imaging studies reviewed. (See chart for details) [] Dragon Disclaimer: Dragon Disclaimer: This electronic medical record was generated, in whole or in part, using a voice recognition dictation system. Departure Departure Impression: Primary Impression: Allergic reaction to insect bite Additional Impression: Infected insect bites of multiple sites Disposition: 01 DC HOME SELF CARE/HOMELESS Condition: STABLE Referrals: UNKNOWN PCP NAME (PCP) Patient Instructions: Insect Bite, Fpar-yh-Aeno Additional Instructions: Fill the prescription(s) and use as directed. You may apply [id number] topical hydrocortisone cream or Benadryl cream for relief of itching. You may also take [id number] Benadryl or a daily antihistamine such as Zyrtec, Mary, or Claritin for relief of your itching. Recommend application of cool packs to the affected areas for comfort, you may also take Tylenol or ibuprofen as needed for pain. Follow-up with your primary care doctor in 1-2 days return to the ER if symptoms worsen or you develop a fever. Scripts Cephalexin (KEFLEX) 500 Mg Capsule 500 MG PO QID for 7 Days, #28 CAP 0 Refills Prov: ALEXANDRA GARCIA APRN 01/09/20 ALEXANDRA GARCIA APRN Jan 09, 2020 15:20
== END 2020-01-09 15:27 | disposition home or self-care (01) ==
LOC: ER 13:38
DX: S60.561A Insect bite (nonvenomous) of right hand, initial encounter (principal); S60.562A Insect bite (nonvenomous) of left hand, initial encounter; R60.0 Localized edema; L53.9 Erythematous condition, unspecified; Z90.49 Acquired absence of other specified parts of digestive tract; W57.XXXA Bitten or stung by nonvenomous insect and other nonvenomous arthropods, initial encounter; Y93.89 Activity, other specified; Y92.89 Other specified places as the place of occurrence of the external cause; Y99.8 Other external cause status
CPT/HCPCS: 99283